=== PATIENT | female | born 1970 | race African-American/Black ===

== ENCOUNTER 2024-02-06 15:35 | Inpatient (IN) | payer OTHER ==
[2024-02-06] MEDS ORDERED: METHOCARBAMOL 500 MG TABLET PO PRN (19:46)
[2024-02-06] MEDS ORDERED: BENZOCAINE/MENTHOL (CHLORASEPTIC ) LOZENGE MM PRN (19:46)
[2024-02-06] MEDS ORDERED: guaiFENesin 600 MG TABLET.ER (FP) PO PRN (19:46)
[2024-02-06] MEDS ORDERED: BISMUTH SUBSALICYLATE 524 MG/30 ML PO PRN (19:46)
[2024-02-06] MEDS ORDERED: LOPERAMIDE HCL 2 MG CAPSULE PO PRN (19:46)
[2024-02-06] MEDS ORDERED: IBUPROFEN 600 MG TABLET (FP) PO PRN (19:46)
[2024-02-06] MEDS ORDERED: NALOXONE (NARCAN) HCL 4 MG/0.1 ML SPRAY NS PRN (19:46)
[2024-02-06] MEDS ORDERED: MAGNESIUM HYDROX 2400MG/30ML ORAL SUSPENSION 30 ML CUP PO PRN (19:46)
[2024-02-06] MEDS ORDERED: IBUPROFEN 400 MG TABLET (FP) PO PRN (19:46)
[2024-02-06] MEDS ORDERED: ONDANSETRON *ODT* 4 MG TABLET SL PRN (19:46)
[2024-02-06] MEDS ORDERED: BENZONATATE 200 MG CAPSULE PO PRN (19:46)
[2024-02-06] MEDS ORDERED: NALOXONE (NYS OPIOID OVERDOSE PROGRAM) 4 MG/0.1 ML SPRAY NS PRN (19:46)
[2024-02-06] MEDS ORDERED: DICYCLOMINE HCL 10 MG CAPSULE PO PRN (19:46)
[2024-02-06] MEDS ORDERED: MAG HYDROX/AL HYDROX/SIMETH 30 ML UNIT-DOSE CUP PO PRN (19:46)
[2024-02-06] MEDS ORDERED: ACETAMINOPHEN 325 MG TABLET (FP) PO PRN (19:46)
[2024-02-06] MEDS ORDERED: POLYETHYLENE GLYCOL (HEALTHYLAX) 3350 17 GM PACKET PO PRN (19:46)
[2024-02-06 20:07] VITALS: BMI 25.2
[2024-02-06] MEDS: hydrOXYzine PAMOATE 25 MG CAPSULE (FP) PO PRN (20:46)
[2024-02-06] MEDS: MELATONIN 5 MG TABLETS PO SCH (22:39)
[2024-02-06] MEDS: THIAMINE 100 MG TABLET PO SCH (22:39)
[2024-02-07] MEDS ORDERED: LORazepam 1 MG TABLET PO PRN (09:47)
[2024-02-07] MEDS: PRENATAL VITAMINS W/ FOLIC ACID TABLET (FP) PO SCH (10:23)
[2024-02-07] MEDS: LORazepam 2 MG TABLET PO SCH (10:23)
[2024-02-07] MEDS: FLU VACCINE (FLULAVAL) PF 45 MCG/0.5 ML SYRINGE 2024-2025 IM ONE (11:32)
[2024-02-07] MEDS: PNEUMOC 20-VAL CONJ-DIP CRM/PF 0.5 ML SYRINGE IM ONE (11:33)
[2024-02-08] MEDS: LORazepam 1 MG TABLET PO SCH (05:56)
[2024-02-08 10:01] VITALS: RESP 16
[2024-02-08] MEDS: amLODIPine BESYLATE 5 MG TABLET (FP) PO SCH (14:50)
[2024-02-08 17:14] VITALS: BP 133/79; PULSE 64; TEMP 97
[2024-02-09] MEDS ORDERED: LORazepam 0.5 MG TABLET PO SCH (05:00)
[2024-02-10] MEDS ORDERED: LORazepam 0.5 MG TABLET PO ONE (05:00)
== END 2024-02-08 18:40 | disposition left against medical advice (07) | DRG 770 ==
LOC: YASAS 15:35 → Y6N 19:50
PROVIDERS: ADMIT Allergy & Immunology; ATTEND Surgery
PROC: HZ2ZZZZ Detoxification Services for Substance Abuse Treatment (ICD-10-PCS; principal; 2024-02-06)
DX: F10.230 Alcohol dependence with withdrawal, uncomplicated (principal); F14.20 Cocaine dependence, uncomplicated; F17.210 Nicotine dependence, cigarettes, uncomplicated; F20.9 Schizophrenia, unspecified; F43.10 Post-traumatic stress disorder, unspecified; F32.A Depression, unspecified; M54.50 Low back pain, unspecified; G89.29 Other chronic pain; Z88.0 Allergy status to penicillin
CPT/HCPCS: 80305; 80307; 81025; 90656; 90677; 93005; 93010; G0008; G0009